=== PATIENT | female | born 1985 | race Caucasian/White ===

== ENCOUNTER 2021-11-19 10:52 | Emergency (ER) | payer OTHER, SELFPAY ==
--- NOTE | ~2021-11-19 | XR_ITS ---
EXAMINATION: XR chest 2V EXAM DATE: 11/19/2021 11:21 INDICATION: Chest pain. TECHNIQUE: Frontal and lateral projections of the chest obtained and reviewed. There is no prior ney dy for comparison. FINDINGS: The lungs are clear. There are no pleural effusions. The cardiomediastinal silhouette is within normal limits. There is no pneumothorax suspected. The bones and soft tissues are unremarkab le. IMPRESSION: Normal chest x-ray exam. Reviewed, dictated and finalized at location A. INSTALLER IMPRESSION: Normal chest x-ray exam.
--- NOTE | 2021-11-19 10:56 | ECG_ITS ---
Measurements Intervals Shorter Rate: 95 P: 78 KS: 156 QRS: 80 QRSD: 96 T: -12 QT: 340 QTc: 429 Interpretive Statements SINUS RHYTHM NONSPECIFIC ST & T-WAVE ABNORMALITY- ANTEROLAT/INF LEADS BORDERLINE ECG Electronically Signed On 11-19-2021 17:26:10 CATERING MANAGER by Olu Ford D.O.
[2021-11-19 11:06] VITALS: BP 127/77; PULSE 74; RESP 16; TEMP 36.9; O2SAT 100
--- NOTE | 2021-11-19 15:06 | ED.GENADULT ---
HPI - General Adult General Chief complaint: Chest Pain Stated complaint: CP, Covid + Time Seen by Provider: 11/19/21 14:55 History of Present Illness HPI narrative: Patient is a 35-year-old female otherwise healthy who comes into the ED today complaining of feeling overall ill for the last 5 days. She has had a cough that seems to be improving. She comes to the ED today complaining primarily of chest pain which started initially 4 days ago, was improving but then became worse today. The chest pain is located diffusely over her entire chest. Waxes and wanes in severity. She does admit to some shortness of breath. She drove to [place] for the holidays, chest pain the day after an 11-hour car ride. She has had a lot of COVID-19 exposure, reports that her is positive for COVID-19. She tested herself for Covid at symptom onset at home and was negative. She went to an urgent care for the symptoms on was diagnosed with bronchitis and was prescribed prednisone which she is currently taking. Denies any chance of . Related Data Allergies Allergy/AdvReac Type Severity Reaction Status Date / Time No Known Allergies Allergy Verified 11/19/21 11:11 Review of Systems Constitutional: Constitutional: Reports as per HPI, Reports chills, Denies fever(s), Denies night sweats and Denies weakness Cardiovascular: Cardiovascular: Reports chest pain, Denies edema, Denies leg edema, Reports dyspnea and Denies orthopnea Respiratory: Respiratory: Reports cough and Reports dyspnea Gastrointestinal: Gastrointestinal: Denies abdominal pain, Denies constipation, Denies diarrhea, Denies nausea and Denies vomiting Musculoskeletal: Musculoskeletal: Denies abnormal gait, Denies back pain, Denies numbness and Denies tingling Neurologic: Denies Abnormal speech present, Denies abnormal gait, Denies numbness, Denies tingling and Denies weakness Psychiatric: Psychiatric: Denies homicidal ideation and Denies suicidal ideation Exam Narrative: Pleasant, well-appearing, no distress Const: General: cooperative, healthy appearing, comfortable, no acute distress, well developed, alert, awake and Physically active Orientation/consciousness: patient oriented x3 HENMT: Head: normal to inspection, normocephalic and atraumatic Ears: external ears normal General nose exam: Normal external nose present Eyes: Pupils: Equal, round and reactive pupils present EOM: EOMs intact bilaterally Neck: Neck: normal visual inspection Chest: Chest palpation & inspection: normal inspection of the chest and no tenderness Resp: Effort & Inspection: normal respiratory effort and able to speak in complete sentences Auscultation: clear to auscultation bilaterally Cardio: Rate: regular rate Rhythm: regular rhythm Other: Tender to palpate over anterior chest wall. GI: Inspection: normal to inspection GI Palp: No abdominal tenderness : General: Yes no CVA tenderness Back/Spine/Pelvis: Back: no CVA tenderness Skin: General skin exam: normal color and no rashes or lesions noted Lesions: no lesions Neuro: General: patient oriented x3, no focal motor deficits and CN's II-XI intact bilaterally Cranial nerves: Yes Equal, round and reactive pupils present Speech: No Abnormal speech present Extrem: General: normal to inspection and full ROM Other: No edema Psych: Appearance: grossly normal and well kempt Mental Status: mental status grossly normal Speech and movement: Normal speech and movement present Affect: normal affect Thought process: Normal thought process present Course Course Emergency Course: 1500 I am seeing this patient in the triage box as the emergency room is full of boarded admitted patients during this COVID-19 surge. Vital Signs Vital signs: Vital Signs Temperature 36.9 C 11/19/21 11:06 Pulse Rate 74 11/19/21 11:06 Respiratory Rate 16 11/19/21 11:06 Blood Pressure 127/77 11/19/21 11:06 Pulse Oximetry 100 0
[2021-11-19 15:26] LABS: Basophils Percent Auto 0.3 % (0.2-1.2); Eosinophils Percent Auto 0.4 % (0-4.4); Hemoglobin 13.7 g/dL (12.0-15.0); Immature Granulocyte Absolute 0.01 K/mm3 (0.00-0.031); Immature Granulocyte Percent A 0.1 % (0-0.5); Lymphocytes Absolute Auto 2.72 K/mm3 (0.9-3.2); Lymphocytes Percent Auto 39.1 % (18.3-44.2); Mean Corpuscular HGB Conc 34.3 g/dl (32-36); Mean Corpuscular Hemoglobin 29.1 pg (26-34); Mean Corpuscular Volume 85.1 fl (80-100); Mean Platelet Volume 9.7 fl (7.4-10.4); Monocytes Absolute Auto 0.6 K/mm3 (0.1-0.6); Monocytes Percent Auto 8.2 % (2.6-8.5); Neutrophils Absolute Auto 3.6 K/mm3 (1.3-6.7); Neutrophils Percent Auto 51.9 % (45.5-73.1); Platelet Count Result 263 k/mm3 (150-375); Red Cell Distribution Width 11.9 % (11.5-14.5)
[2021-11-19 15:34] LABS: Alanine Aminotransferase 19 U/L (4-35); Albumin Level 4.7 g/dL (3.5-5.1); Alkaline Phosphatase 49 U/L (38-126); Anion Gap 9 mmol/L (8-16); Aspartate Amino Transferase 22 U/L (14-36); Bilirubin,Total 1.1 mg/dL (0.2-1.3); Blood Urea Nitrogen 6 mg/dL (7-17); Calcium 9.9 mg/dL (8.4-10.2); Carbon Dioxide 24 mmol/L (22-30); Chloride 103 mmol/L (98-107); Estimated Glomerular Filt Rate > 60; Glucose 110 mg/dL (65-110); Lipase 98 U/L (23-300); Potassium 3.2 mmol/L (3.4-5.0); Sodium 136 mmol/L (137-145)
[2021-11-19 15:39] LABS: Prothrombin Time 12.6 Seconds (11.1-14.7)
[2021-11-19 15:40] LABS: Partial Thromboplastin Time 25.2 SECONDS (22.3-36.8)
[2021-11-19 15:46] LABS: Troponin I < 0.012 ng/mL (0.000-0.034)
[2021-11-19 15:53] LABS: D Dimer 0.27 ug/mL (<0.48)
[2021-11-19 17:06] LABS: Troponin I < 0.012 ng/mL (0.000-0.034)
[2021-11-19 17:08] LABS: Urine Pregnancy Test Negative
[2021-11-19 17:09] LABS: Pregnancy On Board Control Positive
[2021-11-19 17:15] VITALS: BP 116/78; PULSE 75; RESP 16; TEMP 36.4; O2SAT 97
[2021-11-19 18:09] VITALS: BP 114/72; PULSE 75; RESP 16; TEMP 36.7; O2SAT 100
[2021-11-20 13:42] LABS: SARS-CoV-2 RNA PCR Positive
== END 2021-11-19 18:09 | disposition home or self-care (01) ==
LOC: ANHED 18:05
PROVIDERS: Physician Assistant Medical; Emergency Provider Emergency Medicine; PCP Physician Assistant
DX: U07.1 COVID-19 (principal); J06.9 Acute upper respiratory infection, unspecified; R07.9 Chest pain, unspecified
CPT/HCPCS: 36415; 71046; 80053; 81025; 83690; 84484; 85025; 85380; 85610; 85730; 93005; 99284; C9803; U0003; U0005

== ENCOUNTER 2022-04-19 10:03 | Outpatient (CLI) | payer OTHER, SELFPAY ==
--- NOTE | ~2022-04-19 | US_ITS ---
EXAMINATION:US venous doppler LE RT INDICATION:Right thigh pain TECHNIQUE: Multiple grayscale, color flow and Doppler images of the right lower extremity deep venous systems were obtained and reviewed. COMPARISON:No prior studies for comparison. FINDINGS: The common femoral, superficial femoral and popliteal veins demonstrate normal respiratory variation, augmentation and compressibility. Color flow is also seen within the posterior tibial, pe roneal, greater saphenous and profunda veins. IMPRESSION: 1: No lower extremity deep venous thrombosis. Reviewed, dictated and finalized at location A.
== END 2022-04-19 10:04 | disposition home or self-care (01) ==
PROVIDERS: PCP Physician Assistant; Visit Provider Physician Assistant
DX: M79.651 Pain in right thigh (principal)
CPT/HCPCS: 93971

== ENCOUNTER 2024-03-12 14:45 | Outpatient (CLI) | payer OTHER, SELFPAY ==
--- NOTE | ~2024-03-12 | XR_ITS ---
EXAMINATION: XR lumbar spine 2-3V DATE: 03/12/2024 15:41 INDICATION: Acute low back pain. TECHNIQUE: 3 views of lumbar spine were obtained. COMPARISON: None. FINDINGS: There is 8 degrees levocurvature of lumbar spine. Vertebral body heights and intervertebral disc heights are normal. There is multilevel mild facet joint osteoarthritis in lumbar spine. IMPRESSION: 1. Mild lumbar facet joint osteoarthritis. Reviewed, dictated and finalized at location E.
--- NOTE | ~2024-03-12 | XR_ITS ---
XR hip LT min 2V 03/12/2024 15:41 Indication: Left hip pain Procedure: 2 views left hip Comparison: No prior studies for comparison. Findings: No fracture, subluxation or dislocation. No soft tissue abnormality. No foreign bodies. Impression: 1: No acute bone or joint abnormality. Reviewed, dictated and finalized at location B. Impression: 1: No acute bone or joint abnormality.
--- NOTE | ~2024-03-12 | XR_ITS ---
XR abdomen/kub 1V 03/12/2024 15:41 INDICATION: Right flank pain TECHNIQUE: KUB COMPARISON: None FINDINGS: Bowel gas pattern is normal. There is no evidence of free air, mass, organomegaly, ascites or obstruction. No abnormal calculi are seen. The bones appear intact. IMPRESSION: 1: No acute abdominal abnormality identified. Reviewed, dictated and finalized at location B.
== END 2024-03-12 14:46 ==
PROVIDERS: PCP Physician Assistant; Visit Provider Physician Assistant
DX: M25.552 Pain in left hip (principal); R10.9 Unspecified abdominal pain; M51.36 Other intervertebral disc degeneration, lumbar region
CPT/HCPCS: 72100; 73502; 74018

== ENCOUNTER 2024-09-17 16:00 | Emergency (ER) | payer OTHER, SELFPAY ==
[2024-09-17 16:16] VITALS: BP 100/60; PULSE 81; RESP 16; TEMP 36.9; O2SAT 100
--- NOTE | 2024-09-17 16:31 | ED.ABDPAIN ---
HPI - Abdominal Pain General Chief Complaint: Abdominal Pain Stated Complaint: Upper Abdomen/back pain Time Seen by Provider: 09/17/24 16:18 Source: patient, RN notes reviewed and old records reviewed Mode of arrival: ambulatory Limitations: no limitations History of Present Illness HPI narrative: 38-year-old female to Express Care with complaints of bilateral upper abdominal pain with acute onset this afternoon while she was cleaning around her home. Patient gestures toward bilateral anterior ribs stating intense discomfort across upper abdominal area radiating around to back. Patient states back pain is worse on left side. Patient also endorsing shortness of breath. Patient endorsing nausea without emesis. Patient denies pertinent medical history, chest pain, allergies. Patient resting anxiously in exam room in no acute distress. Respirations even and nonlabored. Patient's present in exam room with patient. Related Data Home Medications Medication Instructions Recorded Confirmed No Home Medications 01/14/24 09/17/24 Allergies Allergy/AdvReac Type Severity Reaction Status Date / Time No Known Allergies Allergy Verified 09/17/24 16:33 Review of Systems Review of Systems: All systems reviewed & are unremarkable except as noted in HPI and below Constitutional: Constitutional: Reports no additional constitutional complaints Eyes: Eyes: Reports no additional eye complaints ENT: Reports system reviewed and no additional complaints, except as documented Cardiovascular: Cardiovascular: Reports no additional cardiovascular complaints, Denies chest pain and Denies dyspnea Respiratory: Respiratory: Reports no additional respiratory complaints, Denies cough and Denies dyspnea Gastrointestinal: Gastrointestinal: Reports as per HPI, Reports abdominal pain and Reports nausea Musculoskeletal: Musculoskeletal: Reports as per HPI Comments: anterior rib pain bilaterally Neurologic: Reports system reviewed and no additional complaints, except as documented Psychiatric: Psychiatric: Reports no additional psychiatric complaints [facility] Past Medical History Medical History Anxiety disorder Vaginal Discharge Surgical History Surgical History H/O wrist surgery History of surgery of head forehead as a child Family History Family History Grandparent Diabetes mellitus Hypertension Aneurysm Alzheimer's disease Dementia Social History Social History Smoking status: Never smoker Alcohol intake: never Substance use: never Substance use type: does not use Do You Feel Safe in your Home?: Yes Lack of Transportation: No Lack of Food: Never True Current Housing: I Have Housing Concerned About Future Housing: No Difficulty Paying Gas/Electric Bills: No Difficulty Paying for Meds: No Currently Unemployed: No Education: Trade/Vocational Certificate Difficulty w/ Childcare or Family Care: No Living arrangements: other Additional living arrangements comments: Occupation/Education: other 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 There is no relevant family history pertinent to the patient complaint. Exam Const: General: cooperative, no acute distress, well developed, alert, anxious, uncomfortable, well groomed and well nourished Nutritional Appearance: well nourished Orientation/consciousness: patient oriented x3 Limitations: no limitations HENMT: Head: normal to inspection Ears: external ears normal Face/Nose/Sinus: Normal external nose present, Normal nares present, normal facial exam, No erythema and No edema Face and sinus: normal facial exam, no erythema and no edema Mouth: Yes Normal oral and palatal mucosa present Eyes: General: appearance normal, both eyes and all related structures Neck: Neck: normal visual inspection, full ROM and no meningeal signs Chest: Chest palpation & inspection: normal inspection of the chest Resp: Effort & Inspection: normal respiratory effort and able to speak in complete sentences Auscultation: clear to auscultation bilaterally Cardio: Jugular venous distension: no JVD Rate: regular rate Rhythm: regular rhythm Back/Spine/Pelvis: Cervical Spine: cervical ROM normal Skin: General skin exam: normal color, no rashes or lesions noted and turgor normal Neuro: General: patient oriented x3, gait normal, moves all extremities and no meningeal signs Speech: normal speech Gait exam (Neuro): Normal gait present Extrem: General: normal to inspection, full ROM and capillary refill normal Psych: Appearance: grossly normal and well kempt Course Course Emergency Course: Some parts of this dictation were generated by voice recognition software and may contain typographical and/or grammatical inaccuracies. Level of Care: Express Care Visit Vital Signs Vital signs: Vital Signs Temperature 36.9 C 09/17/24 16:16 Pulse Rate 81 09/17/24 16:16 Respiratory Rate 16 09/17/24 16:16 Blood Pressure 100/60 09/17/24 16:16 Pulse Oximetry 100 09/17/24 16:16 Temperature 36.9 C 09/17/24 16:16 Pulse Rate 81 09/17/24 16:16 Respiratory Rate 16 09/17/24 16:16 Blood Pressure 100/60 09/17/24 16:16 Pulse Oximetry 100 09/17/24 16:16 reviewed Transfer Transfered to: [facility] Transportation: Other ( private vehicle) Transfer rationale: higher level of care Accepting physician: Cheyanne BENDER MDM - Abdominal Pain MDM Narrative Medical decision making narrative: 38-year-old female to Express Care with complaints of bilateral upper abdominal pain with acute onset this afternoon while she was cleaning around her home. Patient gestures toward bilateral anterior ribs stating intense discomfort across upper abdominal area radiating around to back. Patient states back pain is worse on left side. Patient also endorsing shortness of breath. Patient endorsing nausea without emesis. Patient denies pertinent medical history, chest pain, allergies. Patient resting anxiously in exam room in no acute distress. Respirations even and nonlabored. Patient's present in exam room with patient. Patient is sitting anxious and uncomfortably in exam room nontoxic in appearance. Patient appropriate for transfer to [facility] Transfer instructions reviewed with patient, including strict orders to report directly to the emergency department. Patient offered EMS transport. Patient declined and prefers private vehicle. Patient verbalized understanding. Some parts of this dictation were generated by voice recognition software and may contain typographical and/or grammatical inaccuracies. Differential Diagnosis Differential diagnosis: Likely abdominal pain, acute appendicitis, calculus of kidney, constipation, diverticulitis, endometriosis, gastroenteritis, pancreatitis and small bowel obstruction Discharge Plan Discharge Clinical Impression: Abdominal pain Patient Disposition: Acute Care Hospital Condition: Stable Instructions: Abdominal Pain (ED) Prescriptions: No Action No Home Medications Follow-up/Referrals: Jannet,DEE DEE Jimenez [Primary Care Provider] -
== END 2024-09-17 16:33 | disposition short-term general hospital (02) ==
LOC: EXPGOSH 16:05
PROVIDERS: Emergency Provider Nurse Practitioner Family; PCP Physician Assistant
DX: R10.11 Right upper quadrant pain (principal); R10.12 Left upper quadrant pain
CPT/HCPCS: 99212; G0463

== ENCOUNTER 2024-09-17 16:46 | Emergency (ER) | payer OTHER, SELFPAY ==
[2024-09-17 16:48] VITALS: BP 108/66; PULSE 71; RESP 18; TEMP 36.7; O2SAT 98
--- NOTE | 2024-09-17 17:48 | ED_ITS ---
HPI - Abdominal Pain General Chief Complaint: Abdominal Pain Stated Complaint: abd pain Time Seen by Provider: 09/17/24 17:48 Focused HPI: This is a 38 year old female that presents to the ER for upper abdominal pain. Ongoing since this afternoon. Reports pain in her ribs and back. Reports she was having trouble catching her breath. Denies fever, nausea, vomiting. GENERAL: Well-appearing, well-nourished, and in no acute distress. HEAD: Normocephalic, atraumatic. CHEST: Clear to auscultation. ?No respiratory distress. HEART: Regular rate and rhythm.? NEURO: ?Alert and oriented x3. Patient screened in triage and initial orders placed.? ?Additional care and disposition to be based upon?diagnostic testing and treatment. Related Data Home Medications Medication Instructions Recorded Confirmed No Home Medications 01/14/24 09/17/24 Allergies Allergy/AdvReac Type Severity Reaction Status Date / Time No Known Allergies Allergy Verified 09/17/24 16:33 [facility] Past Medical History Medical History Anxiety disorder Vaginal Discharge Surgical History Surgical History H/O wrist surgery History of surgery of head forehead as a child Family History Family History Grandparent Diabetes mellitus Hypertension Aneurysm Alzheimer's disease Dementia Social History Social History Smoking status: Never smoker Alcohol intake: never Substance use: never Substance use type: does not use Do You Feel Safe in your Home?: Yes Lack of Transportation: No Lack of Food: Never True Current Housing: I Have Housing Concerned About Future Housing: No Difficulty Paying Gas/Electric Bills: No Difficulty Paying for Meds: No Currently Unemployed: No Education: Trade/Vocational Certificate Difficulty w/ Childcare or Family Care: No Living arrangements: other Additional living arrangements comments: Occupation/Education: other 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 Gender identity (if verbalized by the patient): Female Sexual Orientation (if Verbalized by the Patient): Straight or Heterosexual Course Vital Signs Vital signs: Vital Signs Temperature 98.1 F 09/17/24 16:48 Pulse Rate 71 09/17/24 16:48 Respiratory Rate 18 09/17/24 16:48 Blood Pressure 108/66 09/17/24 16:48 Pulse Oximetry 98 09/17/24 16:48 Oxygen Delivery Room Air 09/17/24 16:48 Temperature 98.1 F 09/17/24 16:48 Pulse Rate 71 09/17/24 16:48 Respiratory Rate 18 09/17/24 16:48 Blood Pressure 108/66 09/17/24 16:48 Pulse Oximetry 98 09/17/24 16:48 Oxygen Delivery Room Air 09/17/24 16:48 MDM - Abdominal Pain MDM Narrative Medical decision making narrative: Patient left after medical screening exam and before any further evaluation or management Discharge Plan Discharge Clinical Impression: Acute epigastric pain Patient Disposition: [facility] After Seen by Prov Condition: Guarded Prognosis Instructions: Antibiotic Form Prescriptions: No Action No Home Medications Follow-up/Referrals: Jannet,DEE DEE Jimenez [Primary Care Provider] -
== END 2024-09-18 00:33 | disposition left against medical advice (07) ==
PROVIDERS: Emergency Provider Physician Assistant; PCP Physician Assistant
DX: R10.13 Epigastric pain (principal)
CPT/HCPCS: 99281

== ENCOUNTER 2025-09-07 13:31 | Outpatient (CLI) | payer OTHER, SELFPAY ==
--- NOTE | ~2025-09-07 | MM_ITS ---
EXAMINATION: MM screening sophie BI w edelmira HISTORY: Screening TECHNIQUE: Craniocaudal and mediolateral oblique 3-D tomosynthesis images were obtained and synthetic 2-D images were generated. CAD analysis was submitted and interpreted. COMPARISON: No prior mammogram is available for comparison at this institution. BREAST PARENCHYMAL COMPOSITION: Dense: The breasts are heterogeneously dense, which may obscure small masses FINDINGS: There is no evidence of suspicious mass, calcification, or architectural distortion to suggest malignancy in either breast. There has been no suspicious interval change. IMPRESSION: 1. No mammographic evidence of malignancy. 2. Recommend routine screening mammography in one year. BI-RADS Category 1: Negative Reviewed, dictated and finalized at location O.
== END 2025-09-07 13:32 | disposition home or self-care (01) ==
LOC: MICIMG 13:32
PROVIDERS: PCP Physician Assistant; Visit Provider Physician Assistant
DX: Z12.31 Encounter for screening mammogram for malignant neoplasm of breast (principal)
CPT/HCPCS: 77063; 77067

== ENCOUNTER 2025-10-05 10:21 | Outpatient (CLI) | payer OTHER, SELFPAY ==
--- NOTE | ~2025-10-05 | CT_ITS ---
EXAM/PROCEDURE: CT soft tissue neck w con HISTORY: Retropharyngeal lymphadenopathy COMPARISON: None available. TECHNIQUE: IV contrast-enhanced soft tissue neck CT FINDINGS: Bilateral pathologic sized jugulodigastric, posterior triangle, occipital, submandibular and sternocleidomastoid lymph nodes noted with no suspicious mass or gross lymphadenopathy. The retropharyngeal space appears within normal limits. Parapharyngeal and carotid spaces appear symmetric. Fossa of Rosenmuller are symmetric. No acute process seen in the visualized upper abdomen or intracranial soft tissues. Thyroid is symmetric. Vascular structures are patent. Degenerative changes developing in the cervical spine which otherwise appears intact. IMPRESSION: Several nonpathologic sized lymph nodes in most of the spaces of the neck but no grossly pathologic size lymph nodes, suspicious masses or abscesses. Reviewed, dictated and finalized at location A. PLANNER IMPRESSION: Several nonpathologic sized lymph nodes in most of the spaces of the neck but n o grossly pathologic size lymph nodes, suspicious masses or abscesses.
== END 2025-10-05 10:22 | disposition home or self-care (01) ==
PROVIDERS: PCP Physician Assistant; Visit Provider Physician Assistant
DX: R59.0 Localized enlarged lymph nodes (principal)
CPT/HCPCS: 70491; Q9967